=== PATIENT | female | born 1985 | race Caucasian/White ===

== ENCOUNTER 2017-07-17 10:04 | Observation (INO) | payer MEDICAID ==
[~2017-07-17] VITALS: Ht 162.6 cm; Wt 55.0 kg
[~2017-07-17 10:04] MED LIST: LORTAB 5/500 501 TAB PO; MOTRIN600 MG PO; NOMEDS; PHENERGAN 25MG.25 M1 PO
[2017-07-17 10:09] VITALS: BP 102/78
[2017-07-17 10:25] LABS: LYMPH # 0.5 K/mm3 (0.7-4.5)
--- OUTSIDE RECORDS SUMMARY | 2017-07-17 10:26 | External Medical Summary Rpt | CCD ---
Author Author Conduent Organization Conduent Address Unknown Phone Unavailable Purpose Continuity of Care Document - through 2016
--- OUTSIDE RECORDS SUMMARY | 2017-07-17 10:26 | External Medical Summary Rpt | CCD ---
Author Author , BARRETT HYDE Address Unknown Phone [email or web address] Purpose Continuity of Care Document - 03-28-2017 through 2016 Results Labs Lab Lab Date Result Refere Interp Status Commen Order Detail nces retati t Range on Cell Cnt Pnl CSF (06-13-2017 10:20) Tube # 06-13- 3 complet CSF 017 ed 10:20 Specime 10.0 mL complet n vol 017 ed CSF 10:20 Appeara [id number] Clear complet nce CSF 017 01 ed 10:20 Clear SCT Color [id number] Colorle complet spun 017 02 ss ed CSF 10:20 Colorle ss SCT Color [id number] Colorle complet CSF 017 02 ss ed 10:20 Colorle ss SCT RBC # 06-2 0 /mm3 0-0 complet CSF 017 ed Manual 10:20 WBC # 10-06-2 0 /mm3 0-5 complet CSF 017 ed Manual 10:20 Mycobacterium XXX Cult (06-13-2017 10:20) Night No acid active blue 017 fast stain 10:20 bacilli Tiss seen on direct smear Mycobac No AFB active terium 017 isolate XXX 10:20 d at 4 Cult weeks Bacteria CSF Cult (06-13-2017 10:20) Gram No WBCs complet Stn XXX 017 or ed 10:20 organis ms seen Bacteri No complet a XXX 017 growth ed Aerobe 10:20 at 7 Cult days Prot CSF-mCnc (06-13-2017 10:20) Prot 12.0 15.0-45 complet CSF-mCn 017 mg/dL .0 ed c 10:20 Glucose CSF-mCnc (06-13-2017 10:20) Glucose 63 40-70 complet 017 mg/dL ed CSF-mCn 10:20 c Cryptoc Ag Titr CSF (06-13-2017 10:20) Cryptoc [id number] Negativ complet Ag 017 09 e ed Titr 10:20 Negativ CSF e SCT HCG Preg Ur Ql (06-13-2017 09:10) B-HCG [id number] Negativ complet Preg Ur 017 09 e ed Ql 09:10 Negativ e SCT ESR Bld Qn (04-01-2017 15:10) ESR Bld 5 mm/hr 0-20 complet Qn 017 ed 15:10 Ref Lab Test Results (03-28-2017 15:41) Ref Lab See complet Test 017 preparation supervisor canning ed Results 15:41 d report"
--- OUTSIDE RECORDS SUMMARY | 2017-07-17 10:26 | External Medical Summary Rpt | CCD ---
Author Author , BARRETT HYDE Address Unknown Phone [email or web address] Purpose Continuity of Care Document - 03-28-2017 through 2016 Results Labs Lab Lab Date Result Refere Interp Status Commen Order Detail nces retati t Range on Cell Cnt Pnl CSF (06-13-2017 10:20) Tube # 06-13- 3 complet CSF 017 ed 10:20 Specime 10.0 mL complet n vol 017 ed CSF 10:20 Appeara [id number] Clear complet nce CSF 017 01 ed 10:20 Clear SCT Color [id number] Colorle complet spun 017 02 ss ed CSF 10:20 Colorle ss SCT Color [id number] Colorle complet CSF 017 02 ss ed [...] Cryptoc Ag Titr CSF (06-13-2017 10:20) Cryptoc [id number] Negativ complet Ag 017 09 e ed Titr 10:20 Negativ CSF e SCT HCG Preg Ur Ql (06-13-2017 09:10) B-HCG [id number] Negativ complet Preg Ur 017 09 e ed Ql 09:10 Negativ e SCT ESR Bld Qn (04-01-2017 15:10) ESR Bld 5 mm/hr 0-20 complet Qn 017 ed 15:10 Ref Lab Test Results (03-28-2017 15:41) Ref Lab See complet Test 017 world language teacher ed Results 15:41 d report
--- OUTSIDE RECORDS SUMMARY | 2017-07-17 10:27 | External Medical Summary Rpt | CCD ---
Demographics Preferred Language Czech Marital Status Unknown Jain Affiliation Unknown Race Unknown Ethnic Group Unknown Author Author , BARRETT HYDE Address Unknown Phone [email or web address] Immunization Name Date Rout CVX Reac Dose Comm Prov Is Faci e tion ent ider Refu lity Give sed n Hep 04-09 42 999 Hist H149 No H149 B, 04-26 oric adol 97 al Info High rmat Ris ion - Sour ce Unsp ecif ied MMR - 3 999 Hist H149 No H149 - oric 97 al Info rmat ion - Sour ce Unsp ecif ied
--- OUTSIDE RECORDS SUMMARY | 2017-07-17 10:27 | External Medical Summary Rpt ---
Author Author BARRETT Ahn, BARRETT Ahn Organization [employer] Address Unknown Phone Unavailable
--- OUTSIDE RECORDS SUMMARY | 2017-07-17 10:27 | External Medical Summary Rpt | CCD ---
Demographics Preferred Language Yi Marital Status Unknown Protestant Affiliation Unknown Race Unknown Ethnic Group Unknown Author Author , BARRETT HYDE Address Unknown Phone [email or web address] Immunization Name Date Rout CVX Reac Dose [...]
[2017-07-17 10:30] LABS: HEMOGLOBIN 18.5 g/dL (12.2-16.2)
--- NOTE | 2017-07-17 10:48 | Emergency Room Report ---
History of Present Illness Time Seen by 102Maylin Presenting Problem in Triage Pt arrived:Walked Presenting Problem:VOMITING X 24 HOURS AND THEN STARTED HAVING PAIN. Onset of symptoms date/time:/ or onset unknown for:MEDICAL HX UNKNOWN Treatment Prior to Arrival: HORSEBACK EXCAVATOR Provided by: Sepsis Risk Assessment: Temp: 98 B/P: 102/78 MAP: Pulse: 128 Resp: 24 Recent fever? N Clinical Suspician of Infection? N Mental Status: 1 - Regular (Normal Baseline) Sepsis Risk:Severe Sepsis Risk Have you (or family members/close friends) recently traveled outside the [place]? N If Yes, where/when: Have you had exposure to infectious disease within the past month? TB? Other? Specify: 52 years old white female smoker with peripheral neuropathy. She had dyspepsia for the last 4 days and last night she started vomiting 10-20 times without diarrhea. She she developed abdominal cramps with the vomiting. She arrived in the ED she was given Zofran and the cramps subsided with no more vomiting. She denies having hematemesis coffee-ground emesis is bleeding per rectum or melanotic stool. Source patient, RN notes reviewed, family Exam Limitations no limitations ALLERGIES Coded Allergies: No Known Allergies (07/17/17) Home Medications Reported Medications No Home Medications (NO HOME MEDICATIONS) History Medical History General CAD? No Angina: No PA: No Hypertension? No Hyperlipidemia? No CHF? No DVT? No PE? No COPD? No Asthma? No Anemia? No GERD? No Gastric ulcers? No GI Bleed? No Hernia? No Thyroid Problems? No Hypothyroidism? No CVA? No Seizures? No Diabetes? No Renal Insuffiency? No End Stage Renal Disease? No UTI? No Stones? No BPH? No GB Disease: No Nephritic Syndrome? No Asplenia? No Hepatitis? No Sickle Cell Disease? No Arthritis? No Migraines? No Cataracts? No Glaucoma? No MRSA? No HIV? No TB? No Anxiety? No Depression? No Cancer? No Site: N More? 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 Respiratory no symptoms reported Cardiovascular no symptoms reported Gastrointestinal see HPI, nausea, vomiting Genitourinary no symptoms reported. Musculoskeletal no symptoms reported Skin no symptoms reported Psychiatric/Neurological no symptoms reported Physical Exam Vital Signs Vital Signs Date Time Temp Pulse Resp B/P Pulse O2 O2 Flow FiO2 Ox Delivery Rate 07/17 1132 98.0 128 24 102/78 98 07/17 1009 98.0 128 24 102 98 - WBC >12,000 or <4,000 or 10% bands? 2 or more SIRS Criteria Met? B/P: MAP: Creatinine >2.0? UA output<0.5ml/kg/hr for 2 hrs? Platelet count >100,000? Lactate >2.0mmol/1? INR >1.2 or PTT > than 60 sec? Evidence of Organ Dysfunction? Provider documented clinical suspician of infection? N Sepsis Criteria Count: 2 Sepsis Risk: Severe Sepsis Risk General Appearance normal appearance, WD/WN Eye Exam - bilateral eye normal exam, bilateral eye PERRL, bilateral eye EOMI Ear, Nose, Throat hearing grossly normal, normal ENT inspection Neck normal inspection, non-tender, supple, full range of motion Respiratory Status Yes: trachea midline, chest symmetrical, non tender chest. No: respiratory distress. Lung Sounds bilateral: normal breath sounds, lungs clear. Cardiovascular normal exam, regular rate/rhythm, no peripheral edema, no gallop, no JVD, no murmur, no rub, normal peripheral pulses Peripheral Pulses Pulses normal Yes Gastrointestinal normal bowel sounds, soft, no organomegaly, no pulsatile mass, no guarding, no rebound, mildly distended abdomen soft with no guarding or rigidity no tenderness or rebound tenderness Back normal inspection, no CVA tenderness, no vertebral tenderness Extremities non-tender, normal range of motion, normal inspection Neurologic alert, manufacturing intern II-XII nml as tested, normal exam, oriented x 3 Reflexes Reflexes normal Yes Medical Decision Making LABS/Meds/Orders Pt receiving controlled substance in ED? No Results/Orders Laboratory Tests 07/17/17 1100: Urine Color YELLOW, Urine Appearance CLEAR, Urine pH 6.0, Ur Specific [place] >= 1.030, Urine Protein TRACE H, Urine Ketones 3+ H, Urine Blood NEGATIVE, Urine Nitrate NEGATIVE, Urine Bilirubin NEGATIVE, Urine Urobilinogen 0.2, Ur Leukocyte Esterase NEGATIVE, Urine WBC 5-10, Ur Squamous Epith Cells 3-5, Urine Bacteria 3 +, Hyaline Casts OCC, Urine Mucus 2+, Urine Glucose NEGATIVE 07/17/17 1014: Magnesium 1.9 07/17/17 1014: Sodium 135 L, Potassium 3.4 L, Chloride 90 L, Carbon Dioxide 22, BUN 12, Creatinine 1.2 H, Estimated Creat Clear 59, Estimated GFR (MDRD) 52 L, Glucose 202 H, Calcium 10.1, Total Bilirubin 1.1 H, AST 78 H, ALT 57, Alkaline Phosphatase 171 H, Total Protein 8.7 H, Albumin 4.1, Globulin 4.6 H, Albumin/ Globulin Ratio 0.9 L, Amylase 94, Lipase 133, WBC 10.5, RBC 5.98 H, Hgb 18.5 * H, Hct 57.5 H, MCV 96.2, RDW 14.9, Plt Count 237, MPV 8.6, Gran % 87.7 H, Gran # 9.2 H, Total Counted 100, Lymphocytes % 5.0 L, Monocytes % 6.1, Eosinophils % 1.0, Basophils % 0.2, Neutrophils 89 H, Lymphocytes (Manual) 4 L, Lymphocytes # 0.5 L, Monocytes (Manual) 6, Monocytes # 0.6, Eosinophils # 0.1, Basophils # 0.0, Atypical Lymphocytes 1, Platelet Estimate NORMAL, PUBS MCHC 32.1, MCH 30.8 Current Medication Orders Sig/Radha Start time Last Medication Dose Route Stop Time Status Admin Famotidine 20 MG ONCE ONE 07/17 1230 DC IV 07/17 1231 Promethazine HCl 12.5 MG ONCE ONE 07/17 1230 DC IV 07/17 1231 Sodium Chloride 8 ML ONCE ONE 07/17 1230 DC IV 07/17 1231 Sodium Chloride 25 ML ONCE ONE 07/17 1230 AC IV 07/17 1244 Potassium Chloride 40 MEQ ONCE ONE 07/17 1100 DC 07/17 PO 07/17 1101 1057 Sodium Chloride 1,000 ML .Q1H1M 07/17 1100 DC 07/17 IV 07/17 1200 1102 Sodium Chloride 10 ML PRN PRN 07/17 1100 AC IV 07/18 1050 Potassium Chloride 0 .STK-MED ONE 07/17 1057 DC PO Sodium Chloride 1,000 ML .STK-MED ONE 07/17 1057 DC IV Ondansetron HCl 4 MG ONCE ONE 07/17 1015 DC 07/17 IV 07/17 1016 1019 Sodium Chloride 10 ML PRN PRN 07/17 1015 AC IV 07/18 1015 Sodium Chloride 1,000 ML .Q1H1M 07/17 1015 DC 07/17 IV 07/17 1115 1058 Sodium Chloride 10 ML PRN PRN 07/17 1015 AC IV 07/18 1015 Ondansetron HCl 0 .STK-MED ONE 07/17 1012 DC .ROUTE Sodium Chloride 1,000 ML .STK-MED ONE 07/17 1012 DC IV Orders Procedure Date/time Status DIET-NOTHING BY MOUTH 07/17 L Active SERUM , QUAL 07/17 1108 Complete CULTURE, URINE 07/17 1100 Active MAGNESIUM 07/[address] ABD/PELVIS REQ 07/17 1017 Complete IV SALINE LOCK 07/17 1017 Active URINALYSIS/COMPLETE 07/17 1017 Complete URINE 07/17 1017 Complete LIPASE 07/17 1017 Complete CBC WITH AUTO DIFF 07/17 1017 Complete CHEM 12 PROFILE 07/17 1017 Complete AMYLASE 07/17 1017 Complete DIFFERENTIAL-WBC 07/17 1014 Complete Departure Departure Time of Disposition 1212 Disposition Still a Patient Clinical Impression Primary Impression: Colitis Secondary Impressions: Dehydration, Gall bladder disease, Intractable vomiting, Nephrolithiasis, Neuropathy, Polycythemia Condition STABLE Referrals VICKEY JOSE (Family) Additional Instructions THE PATIENT COULD NOT TOLERATE PO INTAKE OR POTASSIUM REPALCEMENT. THE PATIETN WAS AGREEABLE FOR ADMISSION. I CALLED DR DAVIS FOR ADMISSIN AND HE ACCEPTED. Discharge Counseling Counseled pt/family regarding diagnosis, test results, medications/RX, home care, follow up needs ED Critical Care Critical Care No If Critical Care minutes are documented, the time involved in the performance of seperately reportable procedures was not counted toward critical care time documented. I directly delivered medical care to this critically ill and/or injured patient. Timely evaluation and treatment was necessary to address the significant organ system(s) dysfunction present in this patient. at 1232
[2017-07-17 10:51] LABS: NEUTROPHILS 89 % (42-76)
[2017-07-17 11:35] LABS: URINE BLOOD NEGATIVE (NEG)
[2017-07-17 11:37] LABS: URINE BILIRUBIN - DIPSTICK NEGATIVE (NEG)
--- NOTE | 2017-07-17 12:07 | RADIOLOGY REPORT PS360 ---
CT ABD PELVIS W/O CONTRAST CLINICAL INDICATION: Abdominal pain with nausea and vomiting ABD PAIN ORDERING PHYSICIAN: Denise Miller MD PATIENT AGE: 32 years COMPARISON: None TECHNIQUE: Axial images obtained with sagittal and coronal reformats. PROCEDURE: Oral Contrast: None IV Contrast: None . FINDINGS: The lung bases are clear. There is diffuse fatty liver infiltration. There is some increased density within the gallbladder and may be related to sludge/concentrated bile . Ultrasound may be of further value if clinically warranted. Spleen, adrenal glands, and pancreas are unremarkable. No hydronephrosis. There is a 3 mm stone in the lower pole the left kidney nonobstructing. No ureteral calculi. Unremarkable appendix. No evidence of diverticulitis. There are scattered diverticula within the colon Marlin graph there is mild diffuse thickening of the ascending, transverse, and descending colon. While this could be related to nondistention, colitis is also considered. No pelvic mass or abnormal fluid collection. No acute bony findings. IMPRESSION: 1. Mild diffuse thickening of the colon which may be due to nondistention versus colitis. 2. Nonobstructing left nephrolithiasis. 3. No evidence of appendicitis. There are scattered colonic diverticula without diverticulitis. 4. Mildly distended gallbladder with sludge/concentrated bile
--- OUTSIDE RECORDS SUMMARY | 2017-07-17 12:41 | External Medical Summary Rpt | CCD ---
Author Author , BARRETT Organization BARRETT Address Unknown Phone [email or web address] Purpose Continuity of Care Document - 03-28-2017 through 2016 Results Labs Lab Lab Date Result Refere Interp Status Commen Order Detail nces retati t Range on Amylase ser/plas (07-17-2017 10:14) Amylase = 94 25-115 complet 017 U/L ed ser/jose alberto 10:14 s Comprehensive metabolic panel (07-17-2017 10:14) Serum = 0.9 1.1-1.8 complet or 017 ed plasma 10:14 albumin /globul in mass ra Serum = 4.1 3.4-5.0 complet or 017 gm/dL ed plasma 10:14 albumin measure ment (mas Serum = 171 46-116 complet or 017 U/L ed plasma 10:14 alkalin e phospha tase theresa Serum = 1.1 0.2-1.0 complet or 017 mg/dL ed plasma 10:14 total bilirub in measure m Serum = 12 7-18 complet or 017 mg/dL ed plasma 10:14 urea nitroge n measure men Serum = 10.1 8.5-10. complet or 017 mg/dL 1 ed plasma 10:14 calcium measure ment (mas Serum = 90 98-107 complet or 017 mmoL/L ed plasma 10:14 chlorid e measure ment (mo Carbon = 22 21.0-32 complet dioxide 017 mmoL/L .0 ed 10:14 measure ment Serum = 1.2 0.55-1. complet or 017 mg/dL 02 ed plasma 10:14 creatin ine measure ment ( Estimat = 59 50-200 complet ion of 017 ML/MIN ed creatin 10:14 ine renal clearan ce Estimat = 52 59- complet ed 017 ML/MIN ed glomeru 10:14 lar filtrat ion rate (GF Comment: REFERENCE RANGE: >60 ML/MIN/1.73 SQUARE METERS Comment: If this patient is -Emirati, then multiply the Comment: result by 1.210. Serum = 4.6 1.3-3.2 complet globuli 017 gm/dL ed n 10:14 measure ment (mass/v olume) Serum = 202 74-106 complet or 017 mg/dL ed plasma 10:14 glucose measure ment (mas Serum = 3.4 3.5-5.1 complet potassi 017 mmoL/L ed um 10:14 measure ment Serum = 135 136-145 complet sodium 017 mmoL/L ed measure 10:14 ment Serum = 78 15-37 complet or 017 U/L ed plasma 10:14 asparta te aminotr ansfera ALT = 57 12-78 complet (SGPT) 017 U/L ed ser/jose alberto 10:14 s Protein = 8.7 6.4-8.2 complet total 017 gm/dL ed ser/jose alberto 10:14 s Lipase measurement (07-17-2017 10:14) Lipase = 133 73-393 complet measure 017 U/L ed ment 10:14 CBC w auto diff (07-17-2017 10:14) Automat = 0.0 0-0.2 complet ed 017 K/MM3 ed blood 10:14 basophi l count (count/ vo Baso % = 0.2 % 0.1-2.0 complet 017 ed 10:14 Automat = 0.1 0.0-0.4 complet ed 017 K/mm3 ed blood 10:14 eosinop hil count Automat = 1.0 % 0.1-12. complet ed 017 0 ed blood 10:14 eosinop hils/10 0 leukocy t Blood = 9.2 1.8-7.8 complet granulo 017 K/mm3 ed cytes 10:14 automat ed count (numb Granulo = 87.7 37.0-80 complet cyte 017 % .0 ed percent 10:14 age Blood = 57.5 37.0-47 complet hematoc 017 % .0 ed rit 10:14 (volume fractio n) Blood = 18.5 12.2-16 complet hemoglo 017 g/dL .2 ed bin 10:14 measure ment (mass/v olum Absolut = 0.5 0.7-4.5 complet e 017 K/mm3 ed lymphoc 10:14 yte count Lymphoc = 5.0 % 10-50.0 complet yte 017 ed count, 10:14 blood, automat ed Mean = 30.8 27-31.2 complet corpusc 017 pg ed ular 10:14 hemoglo bin (MCH) determ Automat = 32.1 31.8-35 complet ed 017 g/dl .4 ed erythro 10:14 cyte mean corpusc ular h Automat = 96.2 82.2-97 complet ed 017 fl .8 ed erythro 10:14 cyte mean corpusc ular v Absolut = 0.6 0.1-1.0 complet e 017 K/mm3 ed monocyt 10:14 e count [place] % = 6.1 % 1.7-9.3 complet 017 ed 10:14 Automat = 8.6 7.4-10. complet ed 017 fl 4 ed blood 10:14 platele t mean volume theresa Blood = 237 142-424 complet platele 017 K/mm3 ed t count 10:14 Red = 5.98 4.2-5.4 complet blood 017 M/mm3 ed cell 10:14 count Automat = 14.9 11.5-17 complet ed 017 % .5 ed erythro 10:14 cyte distrib ution width Blood = 10.5 4.8-10. complet leukocy 017 K/MM3 8 ed yolette 10:14 count (number /volume ) Differential panel, method unspecified - (07-17-2017 10:14) LYMPH 4 % 10-50 complet 017 ed 10:14 Percent = 1 % 0-5 complet of 017 ed variant 10:14 lymphoc ytes in blood Monocyt = 6 % 2-9 complet e % 017 ed 10:14 Platele NORMAL complet t 017 NORMAL ed estimat 10:14 L e Neutrop = 89 % 42-76 complet hil 017 ed count 10:14 Blood = 100 complet total 017 #CELLS ed cell 10:14 count Differential panel, method unspecified - (07-17-2017 10:14) LYMPH 4 % 10% - Low complet 017 50% ed 10:14 Platele NORMAL complet ts 017 ed [Presen 10:14 ce] in Blood by Light microsc opy Mycobacterium XXX Cult (06-13-2017 10:20) Night No [...] ed Aerobe 10:20 at 7 Cult days Cell Cnt Pnl CSF (06-13-2017 10:20) Tube # 06-13-2 3 complet CSF 017 ed 10:20 Specime 10.0 mL complet n vol 017 ed CSF 10:20 Appeara [id number] Clear complet nce CSF 017 01 ed 10:20 Clear SCT Color [id number] Colorle complet spun 017 02 ss ed CSF 10:20 Colorle ss SCT Color [id number] Colorle complet CSF 017 02 ss ed 10:20 Colorle ss SCT RBC # 06-13-2 0 /mm3 0-0 complet CSF 017 ed Manual 10:20 WBC # 06-13-2 0 /mm3 0-5 complet CSF 017 ed Manual 10:20 Prot CSF-mCnc (06-13-2017 10:20) Prot 12.0 15.0-45 complet CSF-mCn 017 mg/dL .0 ed c 10:20 Glucose CSF-mCnc (06-13-2017 10:20) Glucose 63 40-70 complet 017 mg/dL ed CSF-mCn 10:20 c Cryptoc Ag Titr CSF (06-13-2017 10:20) Cryptoc [id number] Negativ complet Ag 017 09 e ed Titr 10:20 Negativ CSF e SCT HCG Preg Ur Ql (06-13-2017 09:10) B-HCG [id number] Negativ complet Preg Ur 017 09 e ed Ql 09:10 Negativ e SCT ESR Bld Qn (04-01-2017 15:10) ESR Bld 5 mm/hr 0-20 complet Qn 017 ed 15:10 Ref Lab Test Results (03-28-2017 15:41) Ref Lab See complet Test 017 pin attacher ed Results 15:41 d report
--- OUTSIDE RECORDS SUMMARY | 2017-07-17 12:41 | External Medical Summary Rpt | CCD ---
Demographics Preferred Language Amharic Marital Status Unknown Scientology Affiliation Unknown Race Unknown Ethnic Group Unknown Author Author , BARRETT HYDE Address Unknown Phone [email or web address] Immunization Name Date Rout CVX Reac Dose Comm Prov Is Faci e tion ent ider Refu lity Give sed n MMR 04-09 3 999 Hist H149 No H149 04-26 oric 97 al Info rmat ion - Sour ce Unsp ecif ied Hep 04-09 42 999 Hist H149 No H149 B, 04-26 oric adol 97 al Info High rmat Ris ion - Sour ce Unsp ecif ied
--- OUTSIDE RECORDS SUMMARY | 2017-07-17 12:41 | External Medical Summary Rpt | CCD ---
Author Author , BARRETT Organization [employer]RETT Address Unknown Phone [email or web address] Purpose Continuity of Care Document - 03-28-2017 [...] SQUARE [employer] Comment: If this patient is -Surinamese, then multiply the Comment: result by 1.210. [...] 017 K/mm3 ed monocyt 10:14 e count [place] % = 6.1 % 1.7-9.3 complet 017 [...] n vol 017 ed CSF 10:20 Appeara [id number] Clear complet nce CSF 017 01 ed 10:20 Clear SCT Color [id number] Colorle complet spun 017 02 ss ed CSF 10:20 Colorle ss SCT Color [id number] Colorle complet CSF 017 02 ss ed [...] Cryptoc Ag Titr CSF (06-13-2017 10:20) Cryptoc [id number] Negativ complet Ag 017 09 e ed Titr 10:20 Negativ CSF e SCT HCG Preg Ur Ql (06-13-2017 09:10) B-HCG [id number] Negativ complet Preg Ur 017 09 e ed Ql 09:10 Negativ e SCT ESR Bld Qn (04-01-2017 15:10) ESR Bld 5 mm/hr 0-20 complet Qn 017 ed 15:10 Ref Lab Test Results (03-28-2017 15:41) Ref Lab See complet Test 017 law firm partner ed Results 15:41 d report
--- OUTSIDE RECORDS SUMMARY | 2017-07-17 12:41 | External Medical Summary Rpt | CCD ---
Demographics Preferred Language Upper Sorbian Marital Status Unknown Druze Affiliation Unknown Race Unknown Ethnic Group Unknown Author Author , BARRETT HYDE Address Unknown Phone [email or web address] Immunization Name Date Rout CVX Reac Dose [...]
--- OUTSIDE RECORDS SUMMARY | 2017-07-17 12:42 | External Medical Summary Rpt ---
Author Author [facility] Ahn, ABDIASNOMI [employer] Organization [employer] Address Unknown Phone Unavailable Results Choriogonadotropin.beta subunit [Units] in 24 hour Urine Observa Value Referen Units Interpr Notes Date tion ce etation Range Choriogon NEG No No No Jul 17 adotropin informati informati informati 2016 .beta on in on in on in 11:00 AM subunit source source source [Units] data data data in 24 hour Urine Choriogonadotropin [Units/volume] in Serum or Plasma Observa Value Referen Units Interpr Notes Date tion ce etation Range Choriogon NEG No No No Jul 17 adotropin informati informati informati 2016 on in on in on in 10:14 AM [Units/vo source source source lume] in data data data Serum or Plasma Magnesium [Moles/volume] in Unspecified specimen Observa Value Referen Units Interpr Notes Date tion ce etation Range Magnesium 1.4 - 2.2 mg/dL Normal No Jul 172016 [Moles/vo on in 10:14 AM lume] in source Unspecifi data ed specimen CBC W Auto Differential panel in Blood Observa Value Referen Units Interpr Notes Date tion ce etation Range Basophils 0 - 0.2 K/MM3 Normal No Jul 172016 [#/volume on in 10:14 AM ] in source Blood by data Automated count Basophils 0.1 - 2.0 % Normal No Jul 172016 leukocyte on in 10:14 AM s in source Blood by data Automated count Eosinophi 0.0 - 0.4 K/mm3 Normal No Jul 17 ls 2016 [#/volume on in 10:14 AM ] in source Blood by data Automated count Eosinophi 0.1 - % Normal No Jul 17 ls/100 12.0 2016 leukocyte on in 10:14 AM s in source Blood by data Automated count Granulocy 1.8 - 7.8 K/mm3 High No Jul 17 yolette 2016 [#/volume on in 10:14 AM ] in source Blood by data Automated count Granulocy 37.0 - % High No Jul 17 yolette/100 80.0 2016 leukocyte on in 10:14 AM s in source Blood by data Automated count Hematocri 37.0 - % High Jul 17 t [Volume 47.0 2016 on in 10:14 AM Fraction] source of Blood data Hemoglobi 12.2 - g/dL High Jul 17 n 16.2 alert 2016 [Mass/vol on in 10:14 AM ume] in source Blood data Lymphocyt 0.7 - 4.5 K/mm3 Low No Jul 17 es 2016 [#/volume on in 10:14 AM ] in source Unspecifi data ed specimen by Automated count Lymphocyt 10 - 50.0 % Low Jul 17 es 2016 [#/volume on in 10:14 AM ] in source Unspecifi data ed specimen by Automated count Erythrocy 27 - 31.2 pg Normal No Jul 17 te mean 2016 corpuscul on in 10:14 AM ar source hemoglobi data n [Entitic mass] Erythrocy 31.8 - g/dl Normal No Jul 17 te mean 35.4 2016 corpuscul on in 10:14 AM ar source hemoglobi data n concentra tion [Mass/vol ume] by Automated count Erythrocy 82.2 - fl Normal Jul 17 te mean 97.8 2016 corpuscul on in 10:14 AM ar volume source [Entitic data volume] by Automated count Monocytes 0.1 - 1.0 K/mm3 Normal Jul 172016 [#/volume on in 10:14 AM ] in source Blood by data Automated count Monocytes 1.7 - 9.3 % Normal No Jul 17 /100 2016 leukocyte on in 10:14 AM s in source Blood by data Automated count Platelet 7.4 - fl Normal Jul 17 mean 10.4 2016 volume on in 10:14 AM [Entitic source volume] data in Blood by Automated count Platelets 142 - 424 K/mm3 Normal No Jul 172016 [#/volume on in 10:14 AM ] in source Blood data Erythrocy 4.2 - 5.4 M/mm3 High No Jul 17 yolette 2016 [#/volume on in 10:14 AM ] in source Amniotic data fluid Erythrocy 11.5 - % Normal No Jul 17 te 17.5 2016 distribut on in 10:14 AM ion width source [Entitic data volume] by Automated count Leukocyte 4.8 - K/MM3 Normal No Jul 9 s 10.8 informati 2016 [#/volume on in 10:14 AM ] in source Blood data Differential panel, method unspecified - Observa Value Referen Units Interpr Notes Date tion ce etation Range Lymphocyt 0 - 5 % Normal No Jul 9 es 2016 Variant/1 on in 10:14 AM 00 source leukocyte data s in Blood by Manual count LYMPH 4 10 - 50 % Low No Jul 9 2016 tion in 10:14 source AM data Monocytes 2 - 9 % Normal No Jul 9 /100 2016 leukocyte on in 10:14 AM s in source Blood by data Automated count Platele NORMAL No No No No Jul 9 ts informa informa informa inform2016 [Presen tion in tion in tion in tion in 10:14 ce] in source source source source AM Blood data data data data by Light microsc opy Neutrophi 42 - 76 % High No Jul 17 ls 2016 [#/volume on in 10:14 AM ] in source Blood by data Automated count Cells No #CELLS No No Jul 9 Counted informati informati 2016 Total [#] on in on in on in 10:14 AM in Blood source source source data data data Amylase [Enzymatic activity/volume] in Serum or Plasma Observa Value Referen Units Interpr Notes ti ce etation Range Amylase 25 - 115 U/L Normal No Jul 9 [Enzymati 2016 c on in 10:14 AM activity/ source volume] data in Serum or Plasma Comprehensive metabolic 2000 panel in Serum or Plasma Observa Value Referen Units Interpr Notes Date ti ce etation Range Albumin/G 1.1 - 1.8 No Low No Jul 9 lobulin informati inform2016 [Mass on in on in 10:14 AM ratio] in source source Serum or data data Plasma Albumin 3.4 - 5.0 gm/dL Normal No Jul 9 [Mass/vol ati 2016 ume] in on in 10:14 AM Serum or source Plasma data Alkaline 46 - 116 U/L High No Jul 9 phosphata 2016 se on in 10:14 AM [Enzymati source c data activity/ volume] in Serum or Plasma Bilirubin 0.2 - 1.0 mg/dL High No Jul 9 .total informati 2017 [Mass/vol on in 10:14 AM ume] in source Serum or data Plasma Urea 7 - 18 mg/dL Normal No Jul 9 nitrogen informati 2017 [Mass/vol on in 10:14 AM ume] in source Serum or data Plasma Calcium 8.5 - mg/dL Normal No Jul 17 [Mass/vol 10.1 informati 2017 ume] in on in 10:14 AM Serum or source Plasma data Chloride 98 - 107 mmoL/L Low No Jul 17 [Moles/vo informati 2017 lume] in on in 10:14 AM Serum or source Plasma data Carbon 21.0 - mmoL/L Normal No Jul 9 dioxide, 32.0 informati 2017 total on in 10:14 AM [Moles/vo source lume] in data Serum or Plasma Creatinin 0.55 - mg/dL High No Jul 9 e 1.02 informati 2016 [Mass/vol on in 10:14 AM ume] in source Serum or data Plasma Creatinin 50 - 200 ML/MIN Normal No Jul 17 e renal informati 2017 clearance on in 10:14 AM source predicted data by Cockcroft -Gault formula Estimated 59- ML/MIN Low REFERENCE Jul 9 RANGE: 2017 glomerula >60 10:14 AM r ML/MIN/1. filtratio 73 SQUARE n rate METERSIf (GF this patient is -A merican, then multiply theresult by 1.210. Globulin 1.3 - 3.2 gm/dL High No Jul 17 [Mass/vol informati 2016 ume] in on in 10:14 AM Serum source data Glucose 74 - 106 mg/dL High No Jul 17 [Mass/vol informati 2017 ume] in on in 10:14 AM Serum or source Plasma data Potassium 3.5 - 5.1 mmoL/L Low No Jul 9 informati 2016 [Moles/vo on in 10:14 AM lume] in source Serum or data Plasma Sodium 136 - 145 mmoL/L Low No Jul 17 [Moles/vo informati 2017 lume] in on in 10:14 AM Serum or source Plasma data Aspartate 15 - 37 U/L High No Jul 17 inform 2017 aminotran on in 10:14 AM sferase source [Enzymati data c activity/ volume] in Serum or Plasma Alanine 12 - 78 U/L Normal No Jul 17 aminotran informati 2017 sferase on in 10:14 AM [Enzymati source c data activity/ volume] in Serum or Plasma Protein 6.4 - 8.2 gm/dL High No Jul 17 [Mass/vol informati 2016 ume] in on in 10:14 AM Serum or source Plasma data Lipase [Enzymatic activity/volume] in Serum or Plasma Observa Value Referen Units Interpr Notes Date tion ce etation Range Lipase 73 - 393 U/L Normal No Jul 17 [Enzymati informati 2017 c on in 10:14 AM activity/ source volume] data in Serum or Plasma
[2017-07-17 13:39] VITALS: BP 118/71
--- NOTE | 2017-07-17 14:33 | HISTORY AND PHYSICAL REPORT ---
History and Physical ([facility]) Date of admission: 07/17/17 Chief complaint: vomiting History: History of Present Illness: Ms. Davis is a 32yo white female smoker with a hx of peripheral neuropathy. She is a patient of [facility]. She had some dyspepsia for the past 4 days and last night she started vomiting 10-20 times without diarrhea. She developed abdominal cramps with the vomiting. She arrived in the ER and she was given Zofran. The cramps subsided with no more vomiting. She still feels very weak and has not had any food or liquids for the past few days other than pedialyte, which she has not been able to keep down. She will be admitting for nausea, vomiting, and dehydration. Of note, her glucose was elevated. She states this has never been elevated in the past. Past Medical History: Medical History: CAD? No Angina: No [place]: No Hypertension? No Hyperlipidemia? No CHF? No DVT? No PE? No COPD? No Asthma? No Anemia? No GERD? No Gastric ulcers? No GI Bleed? No Hernia? No Thyroid Problems? No Hypothyroidism? No CVA? No Seizures? No Diabetes? No Renal Insuffiency? No UTI? No Stones? No BPH? No GB Disease: No Nephritic Syndrome? No Asplenia? No Hepatitis? No Sickle Cell Disease? No Arthritis? No Migraines? No Cataracts? No Glaucoma? No MRSA? No HIV? No TB? No Anxiety? No Depression? No Cancer? No Site: N More? No Additional hx: 1. Peripheral neuropathy Surgical history: Previous Surgery?Y RIGHT HAND SPINAL TAP WISDOM TEETH Medications: Reported Medications No Home Medications (NO HOME MEDICATIONS) Allergies: Coded Allergies: No Known Allergies (07/17/17) Family History: Family history: Postive for: DM, HTN. Social History: Smoking Hx Tobacco: Yes Smoker: Current Every Day Smoker Type: Cigarettes Packs/day: 1 1/2 - 2 Packs Are you exposed to second hand Yes Alcohol: Alcohol: No Hx of Drug Use: Drug Use? No Review of Systems: Constitutional Positive for: fatigue, lethargy, malaise, weak. ENT No: nasal congestion, sore throat. Cardiovascular Positive for: chest pain. No: edema, palpitations. Respiratory Positive for: shortness of air. No: productive cough (sputum), wheezing. GI Positive for: abdominal pain, nausea, vomitting. No: diarrhea, hematemeis, hematochezia, melena. (female) No: frequency, hematuria. Neurological Positive for: weakness. No: dizziness, headache, syncope. Musculoskeletal Positive for: myalgias. No: extremity pain, joint pain. Physical Exam: Vital signs: 1ST Vital Signs Result Date Time Pulse Ox 98 07/17 100 B/P 102/78 07/17 1009 Temp 98.0 07/17 1009 Pulse 128 07/17 1009 Resp 24 07/17 100 O2 Delivery ROOM AIR 07/17 133 Exam: General appearance: alert, awake, Does not appear to feel well Eyes: EOM's w/normal ROM, PERRLA ENT: nose normal, pharynx normal, dry mucous membranes Neck: non-tender, full range of motion, supple Cardiovascular: regular rate & rhythm Respiratory: clear to auscultation ABD: non-distended, normal bowel sounds, no rebound, soft, no guarding, ttp in the periumbilical region Extremities: no peripheral edema Musculoskeletal: equal muscle strength, motor intact, sensation intact Skin: normal color Neuro: normal mood/affect, oriented, speech clear Lab data: Labs: Laboratory Tests 07/17/17 1100: Urine Color YELLOW, Urine Appearance CLEAR, Urine pH 6.0, Ur Specific [place] >= 1.030, Urine Protein TRACE H, Urine Ketones 3+ H, Urine Blood NEGATIVE, Urine Nitrate NEGATIVE, Urine Bilirubin NEGATIVE, Urine Urobilinogen 0.2, Ur Leukocyte Esterase NEGATIVE, Urine WBC 5-10, Ur Squamous Epith Cells 3-5, Urine Bacteria 3 +, Hyaline Casts OCC, Urine Mucus 2+, Urine Glucose NEGATIVE 07/17/17 1014: Magnesium 1.9 07/17/17 1014: Sodium 135 L, Potassium 3.4 L, Chloride 90 L, Carbon Dioxide 22, BUN 12, Creatinine 1.2 H, Estimated Creat Clear 59, Estimated GFR (MDRD) 52 L, Glucose 202 H, Calcium 10.1, Total Bilirubin 1.1 H, AST 78 H, ALT 57, Alkaline Phosphatase 171 H, Total Protein 8.7 H, Albumin 4.1, Globulin 4.6 H, Albumin/ Globulin Ratio 0.9 L, Amylase 94, Lipase 133, WBC 10.5, RBC 5.98 H, Hgb 18.5 * H, Hct 57.5 H, MCV 96.2, RDW 14.9, Plt Count 237, MPV 8.6, Gran % 87.7 H, Gran # 9.2 H, Total Counted 100, Lymphocytes % 5.0 L, Monocytes % 6.1, Eosinophils % 1.0, Basophils % 0.2, Neutrophils 89 H, Lymphocytes (Manual) 4 L, Lymphocytes # 0.5 L, Monocytes (Manual) 6, Monocytes # 0.6, Eosinophils # 0.1, Basophils # 0.0, Atypical Lymphocytes 1, Platelet Estimate NORMAL, PUBS MCHC 32.1, MCH 30.8 Microbiology 07/17 1100 URINE CC: Urine Culture - RECD Radiology results: Results: CT abd/pelvis 1. Mild diffuse thickening of the colon which may be due to nondistention versus colitis. 2. Nonobstructing left nephrolithiasis. 3. No evidence of appendicitis. There are scattered colonic diverticula without diverticulitis. 4. Mildly distended gallbladder with sludge/concentrated bile Diagnosis(es): 1. Colitis Status: Acute 2. Vomiting Status: Acute 3. Dehydration Status: Acute 4. Intractable vomiting Status: Acute 5. Gall bladder disease 6. Nephrolithiasis 7. Elevated LFTs 8. Elevated glucose 9. Renal insufficiency 10. Hypokalemia 11. Neuropathy Status: Chronic Plan: Pt is currently in the ER. She has been started on IVF's and antiemetics. Will discuss initiation of abx for colitis with Dr. Burns as well as a RUQ U/S to r/o Gallbladder disease. Will repeat labs tomorrow and start on potassium for hypokalemia. (Hayde Castellanos) Diagnosis(es): 1. Colitis Status: Acute 2. Dehydration Status: Acute 3. Intractable vomiting Status: Acute 4. Gall bladder disease 5. Nephrolithiasis 6. Elevated LFTs 7. Elevated glucose 8. Renal insufficiency 9. Hypokalemia 10. Neuropathy Status: Chronic Plan: Patient seen and agree with above note. (Eligio Burns MD) at 1506 at 1639
[2017-07-17 15:10] VITALS: BP 139/71
[2017-07-17 15:59] VITALS: BP 100/63
[2017-07-17 19:15] VITALS: BP 100/63
[2017-07-17 20:04] VITALS: BP 114/66
[2017-07-18 04:33] VITALS: BP 111/69
[2017-07-18 07:25] VITALS: BP 119/71
--- NOTE | 2017-07-18 07:29 | PHARMACY CLINIC NOTE ---
Patient Demographics Patient Demographics Admission date: 07/17/17 Date: 07/18/17 Time: 0728 Allergies Coded Allergies: No Known Allergies (07/17/17) HEIGHT- FT: 5 IN: 4.00 K.027 VTE General Information Labs: Laboratory Tests 07/17 1014 Hematology Hgb (12.2 - 16.2 g/dL) 18.5 *H Hct (37.0 - 47.0 %) 57.5 H Plt Count (142 - 424 K/mm3) 237 Disclaimer The following section includes nursing documentation that has been pulled in for pharmacy review. Patient's VTE score: 0 Patient's VTE Risk: VERY LOW RISK Clinical trial participant? No VTE prophylaxis [facility] 0371 VTE prophylaxis ordered? Yes Type of prophylaxis/treatment: FARNAZ at 0728
--- NOTE | 2017-07-18 07:29 | PHARMACY CLINIC NOTE ---
Patient Demographics Patient Demographics Admission date: 07/17/17 Date: 07/18/17 Time: 0728 Allergies Coded Allergies: No Known Allergies (07/17/17) HEIGHT- FT: 5 IN: 4.00 K.027 VTE General Information Labs: Laboratory Tests 07/17 1014 Hematology Hgb (12.2 - 16.2 g/dL) 18.5 *H Hct (37.0 - 47.0 %) 57.5 H Plt Count (142 - 424 K/mm3) 237 Disclaimer The following section includes nursing documentation that has been pulled in for pharmacy review. Patient's VTE score: 0 Patient's VTE Risk: VERY LOW RISK Clinical trial participant? No VTE prophylaxis [facility] 0371 VTE prophylaxis ordered? Yes Type of prophylaxis/treatment: FARNAZ at 0728
[2017-07-18 07:37] LABS: LYMPH # 1.1 K/mm3 (0.7-4.5); LYMPH % 12.4 % (10-50.0)
[2017-07-18 07:39] LABS: HEMOGLOBIN 15.7 g/dL (12.2-16.2)
[2017-07-18 08:00] VITALS: BP 119/71
--- NOTE | 2017-07-18 08:46 | ACUTE CARE PROGRESS NOTE (QUA) ---
Progress Notes Subjective Date 07/18/17 Time 0832 Note Pt states her vomiting had eased up until she tried to drink and then she began vomiting again. She is still having pain in the periumbilical region. She did not rest well. Objective Findings Last VS-Temp:98.2 B/P:119/71 Pulse:46 Resp:18 SaO2:99 ROOM AIR Last weight lbs:121 oz:5 K.027 Method:Bed Scales Laboratory Tests 07/18/17 0620: Sodium 138, Potassium 3.3 L, Chloride 104, Carbon Dioxide 27, BUN 8, Creatinine 0.6, Estimated Creat Clear 117, Estimated GFR (MDRD) 116, Glucose 93, Calcium 8.1 L, Total Bilirubin 0.9, AST 64 H, ALT 37, Alkaline Phosphatase 103, Total Protein 5.5 L, Albumin 2.6 L, Globulin 2.9, Albumin/Globulin Ratio 0.9 L, WBC 8.9, RBC 5.10, Hgb 15.7, Hct 49.8 H, MCV 97.6, RDW 15.0, Plt Count 169, MPV 8.6 , Gran % 79.9, Gran # 7.1, Lymphocytes % 12.4, Monocytes % 7.3, Eosinophils % 0.2, Basophils % 0.2, Lymphocytes # 1.1, Monocytes # 0.7, Eosinophils # 0.0, Basophils # 0.0, PUBS MCHC 31.8, MCH 31.1 07/17/17 1100: Urine Color YELLOW, Urine Appearance CLEAR, Urine pH 6.0, Ur Specific [place] >= 1.030, Urine Protein TRACE H, Urine Ketones 3+ H, Urine Blood NEGATIVE, Urine Nitrate NEGATIVE, Urine Bilirubin NEGATIVE, Urine Urobilinogen 0.2, Ur Leukocyte Esterase NEGATIVE, Urine WBC 5-10, Ur Squamous Epith Cells 3-5, Urine Bacteria 3 +, Hyaline Casts OCC, Urine Mucus 2+, Urine Glucose NEGATIVE 07/17/17 1014: Magnesium 1.9 07/17/17 1014: Sodium 135 L, Potassium 3.4 L, Chloride 90 L, Carbon Dioxide 22, BUN 12, Creatinine 1.2 H, Estimated Creat Clear 59, Estimated GFR (MDRD) 52 L, Glucose 202 H, Calcium 10.1, Total Bilirubin 1.1 H, AST 78 H, ALT 57, Alkaline Phosphatase 171 H, Total Protein 8.7 H, Albumin 4.1, Globulin 4.6 H, Albumin/ Globulin Ratio 0.9 L, Amylase 94, Lipase 133, WBC 10.5, RBC 5.98 H, Hgb 18.5 * H, Hct 57.5 H, MCV 96.2, RDW 14.9, Plt Count 237, MPV 8.6, Gran % 87.7 H, Gran # 9.2 H, Total Counted 100, Lymphocytes % 5.0 L, Monocytes % 6.1, Eosinophils % 1.0, Basophils % 0.2, Neutrophils 89 H, Lymphocytes (Manual) 4 L, Lymphocytes # 0.5 L, Monocytes (Manual) 6, Monocytes # 0.6, Eosinophils # 0.1, Basophils # 0.0, Atypical Lymphocytes 1, Platelet Estimate NORMAL, PUBS MCHC 32.1, MCH 30.8 Microbiology 07/17 1100 URINE CC: Urine Culture - COMP Exam General appearance: does not appear to feel well Cardiovascular: regular rate & rhythm Respiratory: clear to auscultation ABD: non-distended, normal bowel sounds, no rebound, soft, no guarding, ttp in the periumbilical region Extremities: no peripheral edema Assessment/Plan Problem List 1. Colitis Status: Acute 2. Dehydration Status: Acute 3. Intractable vomiting Status: Acute 4. Gall bladder disease 5. Nephrolithiasis 6. Elevated LFTs 7. Elevated glucose 8. Renal insufficiency 9. Hypokalemia 10. Neuropathy Status: Chronic Plan: Patient's WBC is normal today. She may not need any abx at this time. Will discuss a RUQ U/S with Dr. Jordan. Will change IVF's to 1/2 NS with 20meq of potassium d/t hypokalemia. This inpt stay is expected to cross 2 MNs from start of care Yes (Antwan PRECIADO,Hayde) Subjective Date 07/18/17 Assessment/Plan Problem List 1. AGE (acute gastroenteritis) 2. Dehydration Status: Acute 3. Intractable vomiting Status: Acute 4. Nephrolithiasis 5. Elevated LFTs 6. Hypokalemia 7. Neuropathy Status: Chronic Plan: Renal function and kidney function improved with hydration. Will Continue IV fluids and antiemetics. Doubt colitis as she has continued to have normal bowel movements. Will check RUQ US due to gall bladder sludge noted on CT scan (Jez Jordan MD) at 0845 at 0648
--- NOTE | 2017-07-18 13:55 | RADIOLOGY REPORT PS360 ---
US RUQ-(ABD LTD)1ORGAN/QUAD/FU HISTORY: Mid abdominal pain with vomiting and fever vomiting ORDERING PHYSICIAN: Eligio Burns MD PATIENT AGE: 32 years COMPARISON: None FINDINGS: PANCREAS:Unremarkable. No obvious mass or abnormal fluid collection. No ductal dilatation LIVER:No focal liver lesions demonstrated. Homogeneous echogenicity. No intrahepatic biliary ductal dilatation evident RIGHT KIDNEY:Unremarkable. Normal size and echogenicity. No hydronephrosis GALLBLADDER:No gallstones, gallbladder wall thickening, pericholecystic fluid, or biliary dilatation. The gallbladder is somewhat elongated measuring 10 cm but the transverse dimension is unremarkable. IMPRESSION: Slight elongation of the gallbladder. Question clinical significance. Otherwise negative right upper quadrant ultrasound.
[2017-07-18 15:53] VITALS: BP 140/67
[2017-07-18 19:42] VITALS: BP 140/81
[2017-07-18 21:30] VITALS: BP 140/81
[2017-07-19 04:00] VITALS: BP 138/87
[2017-07-19 07:22] VITALS: BP 141/94
--- NOTE | 2017-07-19 08:55 | ACUTE CARE PROGRESS NOTE (QUA) ---
See Addendum Progress Notes Subjective Date 07/19/17 Time 0849 Note Patient states she is still having vomiting. She vomited approximately 6-7 times during the night. She is still nauseated and having abdominal pain. She did actually have an episode of diarrhea throughout the night. She states the Phenergan does help better with the nausea than the Zofran did. She is having a lot of heartburn and did not rest well. She states even if she drinks water it causes her to vomit. Objective Findings Last VS-Temp:98.3 B/P:141/94 Pulse:72 Resp:18 SaO2:99 ROOM AIR Last weight lbs:121 oz:5 K.027 Method:Bed Scales Laboratory Tests 07/19/17 0625: Sodium 133 L, Potassium 3.9, Chloride 98, Carbon Dioxide 24, BUN 4 L, Creatinine 0.5 L, Estimated Creat Clear 140, Estimated GFR (MDRD) 143, Glucose 80, Calcium 8.4 L Exam General appearance: Does not appear to feel well Cardiovascular: regular rate & rhythm Respiratory: clear to auscultation ABD: non-distended, normal bowel sounds, no rebound, soft, no guarding, ttp in the epigastric area Extremities: no peripheral edema Assessment/Plan Problem List 1. AGE (acute gastroenteritis) 2. Dehydration Status: Acute 3. Intractable vomiting Status: Acute 4. Nephrolithiasis 5. Elevated LFTs 6. Hypokalemia 7. Neuropathy Status: Chronic Plan: Potassium has improved. Patient is still vomiting. Will continue IVF and antiemetics. Will start on protonix 40mg IV bid. Will get a diarrhea panel. This inpt stay is expected to cross 2 MNs from start of care Yes (Hayde Castellanos) Subjective Date 07/19/17 Assessment/Plan Problem List 1. AGE (acute gastroenteritis) 2. Dehydration Status: Acute 3. Intractable vomiting Status: Acute 4. Nephrolithiasis 5. Elevated LFTs 6. Hypokalemia 7. Neuropathy Status: Chronic Plan: Patient seen and examined this morning. Concur with above assessment and plan. (Jez Jordan MD) at 0854 at 1257
[2017-07-19 13:31] LABS: AEROMONAS NOT DETECTED (NOT DETECTE); ASTROVIRUS NOT DETECTED (NOT DETECTE); CYCLOSPORA CAYETANENSIS NOT DETECTED (NOT DETECTE); E COLI O157 NOT DETECTED (NOT DETECTE); ENTEROAGGREGATIVE E COLI NOT DETECTED (NOT DETECTE); ENTEROPATHOGENIC E COLI NOT DETECTED (NOT DETECTE); ENTEROTOXIGENIC E COLI NOT DETECTED (NOT DETECTE); NOROVIRUS NOT DETECTED (NOT DETECTE); SAPOVIRUS NOT DETECTED (NOT DETECTE); SHIGA-LIKE TOXIN PROD. E COLI NOT DETECTED (NOT DETECTE); SHIGELLA/ENTEROINVASIVE E COLI NOT DETECTED (NOT DETECTE); VIBRIO CHOLERAE NOT DETECTED (NOT DETECTE)
[2017-07-19 16:00] VITALS: BP 148/91
[2017-07-19 19:39] VITALS: BP 143/94
[2017-07-19 20:40] VITALS: BP 143/94
[2017-07-20 03:43] VITALS: BP 134/87
[2017-07-20 07:57] VITALS: BP 129/84
--- NOTE | 2017-07-20 08:12 | ACUTE CARE PROGRESS NOTE (QUA) ---
Progress Notes Subjective Date 07/20/17 Time 0812 Note Feeling much better. No nausea or vomiting during the night. Still has some heartburn. Feels hungry. No diarrhea during the night Objective Findings Last VS-Temp:97.9 B/P:129/84 Pulse:65 Resp:18 SaO2:98 ROOM AIR Last weight lbs:121 oz:5 K.027 Method:Bed Scales Exam General appearance: alert, no acute distress ENT: mucous membranes moist Cardiovascular: regular rate & rhythm Respiratory: clear to auscultation ABD: soft, no tenderness Assessment/Plan Problem List 1. AGE (acute gastroenteritis) 2. Dehydration Status: Acute 3. Intractable vomiting Status: Acute 4. Nephrolithiasis 5. Elevated LFTs 6. Hypokalemia 7. Neuropathy Status: Chronic 8. C. difficile colitis Plan: She is tolerating clears. Will advance to bland diet and start po Flagyl. If she tolerates this OK, may discharge home later today. This inpt stay is expected to cross 2 MNs from start of care Yes at 1204
[2017-07-20 10:20] VITALS: BP 129/84
[2017-07-20] MEDS ORDERED: OMEPRAZOLE40 MG PO (11:58)
[2017-07-20] MEDS ORDERED: PROMETHAZINE HC25 M1 PO (11:59)
[2017-07-20] MEDS ORDERED: FLAGYL500 M1 PO (12:00)
[2017-07-20 12:38] VITALS: BP 129/84
== END 2017-07-20 12:44 | disposition home or self-care (01) ==
LOC: ER 10:04 → 2ND 12:37
PROVIDERS: Emergency Medicine; Family Medicine
DX: K52.9 Noninfective gastroenteritis and colitis, unspecified (principal); E86.0 Dehydration; G62.9 Polyneuropathy, unspecified; N28.9 Disorder of kidney and ureter, unspecified; K80.80 Other cholelithiasis without obstruction; R73.9 Hyperglycemia, unspecified; R79.89 Other specified abnormal findings of blood chemistry; E87.6 Hypokalemia; F17.210 Nicotine dependence, cigarettes, uncomplicated; R12 Heartburn; Z83.3 Family history of diabetes mellitus; Z82.49 Family history of ischemic heart disease and other diseases of the circulatory system
CPT/HCPCS: G0378; J2405